=== PATIENT | female | born 1995 | race Hispanic/Latino ===

== ENCOUNTER 2017-10-22 10:38 | Inpatient (IN) | payer OTHER ==
--- NOTE | 2017-10-22 11:57 | PDOC.LDHP ---
Labor and Delivery H&P Chief complaint: other HPI: 22 yo @ 31w6d by LMP consistent with 1st trimester US presents with Influenza positive test at clinic. She states she has had n/v as well as a high fever and not feeling well for 24 hours. She states she has not had diarrhea. She does admit to body aches and overall just not feeling well. She admits to feeling her fetus move, denies vaginal bleeding, denies contractions, and admits to her normal amount of vaginal discharge. She was seen earlier in clinic and sent over to the hospital because of high pulse rate. She has no other complaints at this time. Current gestational age (weeks): 31 (31w6d) Due date: 12/18/17 Dating criteria: last menstrual period, first trimester ultrasound Grav: 1 Para: 0 OB History Details: Uncomplicated first Current complications: none Abnormal US findings: No Past Medical History: None Current medications: pre- vitamins Previous surgical history: none Allergies/Adverse Reactions: Allergies Allergy/AdvReac Type Severity Reaction Status Date / Time No Known Allergies Allergy Unverified 10/22/17 12:04 Social history: none - Physical Exam Abnormal vital signs: Tachycardia to 150s, Temperature to 102 General: NAD Heart: other (Tachycardia) Lungs: nonlabored breathing Abdomen: gravid Extremeties: no edema FHT: category 2 (Baseline 160s, Moderative variability, Positive Accels, Negative Decels) [place] contractions every: NA - OB Labs Blood type: O RH: positive Antibody Screen: negative HIV: negative RPR: negative HEPSAg: negative GBS: unknown Rubella: immune - Assessment 1. Influenza 2. Fundal Height small for dates - Plan Plan: admit to L&D -: 22 yo @ 31w6d by LMP consistent with 1st trimester US presents with 1. Influenza -Will initiate Tamiflu -Will supplement with IVF -Will give Tylenol for fevers -NST for monitoring -Track urine output -Routine labs drawn 2. Fundal Height Small for dates - Will get US limited for growth.
[2017-10-22 12:06] VITALS: BMI 29.7
[2017-10-22] MEDS ORDERED: Ondansetron ODT 4 MG TAB PO PRN (12:17)
[2017-10-22] MEDS ORDERED: Acetaminophen 650 MG/20.3 ML UDCUP PO SCH (12:30)
[2017-10-22] MEDS ORDERED: Lactated Ringer's 1,000 ML IV SCH ×3 (12:30→14:00)
[2017-10-22] MEDS ORDERED: Oseltamivir 75 MG CAP PO SCH ×3 (13:51→21:00)
[2017-10-22] MEDS ORDERED: Acetaminophen 500 MG TAB PO PRN (17:45)
[2017-10-22] MEDS ORDERED: Ondansetron HCl/PF 4 MG/2 ML Vial IVP PRN (17:45)
[2017-10-22] MEDS ORDERED: Promethazine HCl 25 MG/ML VIAL IM PRN (17:45)
[2017-10-22] MEDS: Lactated Ringer's 1,000 ML IV SCH ×2 (18:49→21:45)
[2017-10-22 18:51] LABS: #Monocytes 0.5 thou/uL (0.11-0.59); #Neutrophils 4.7 thou/uL (1.40-6.50); %Basophils 0.5 % (0.0-1.0); %Eosinophils 0.5 % (0.0-10.0); %Lymphocytes 15.6 % (28.0-48.0); %Monocytes 8.1 % (0.0-4.0); Hematocrit 30.1 % (36.0-47.0); Mean Platelet Volume 8.1 fL (7.4-10.4); Red Blood Cell (RBC) Count 3.52 mill/uL (4.00-5.20); White Blood Cell (WBC) Count 6.3 thou/uL (4.8-10.8)
[2017-10-22 19:11] LABS: ALT (SGPT) 8 U/L (8-55); AST (SGOT) 14 U/L (5-34); Alkaline Phosphatase 151 U/L (40-150); Anion Gap 12 mmol/L (10-20); BUN (Urea Nitrogen) Less than 4 mg/dL (7.0-18.7); Bilirubin, Total 0.4 mg/dL (0.2-1.2); Calc. Creatinine Clearance 166 mL/min (70-130); Calcium 8.8 mg/dL (7.8-10.44); Carbon Dioxide 22 mmol/L (22-29); Chloride 105 mmol/L (98-107); Estimated GFR-MDRD Greater than 90; Globulin 3.3 g/dL (2.4-3.5); Protein, Total 6.4 g/dL (6.0-8.3)
--- NOTE | 2017-10-22 22:41 | ULT ---
LIMITED OB ULTRASOUND: Date: 10-22-17 Provided Clinical History: Assess growth. FINDINGS: No comparison. A single live intrauterine gestation is documented in vertex presentation with heart r ate of 150 beats/minute. The placenta is posteriorly located without evidence for previa. Amniotic fl uid index is not quantified but appears qualitatively normal. Estimated gestational age based on bal celis's study is 31 weeks 3 days. Estimated weight is 1761, +/- 251 grams. A anatomic survey was not performed. biometry: BPD 31 weeks 5 days HC 31 weeks 5 days AC 31 weeks 5 days FL 30 weeks 5 days IMPRESSION: Single live intrauterine gestation, 31 weeks 3 days by ultrasound. POS: [facility]
[2017-10-23] MEDS: Lactated Ringer's 1,000 ML IV SCH (05:32)
--- NOTE | 2017-10-23 07:05 | PDOC.LDPN ---
Labor & Delivery Progress Note - Subjective Subjective: comfortable - Objective Abnormal vital signs: Tachycardia General: NAD Uterine fundus: non tender SVE: No exam performed - Assessment (1) Current Visit: Yes Status: Acute Comment: 22 yo @ 32w0d by LMP consistent with 1st Trimester US. -NST performed yesterday and reassuring -Continue routine care as outpatient (2) Influenza Code(s): J11.1 - FLU DUE TO UNIDENTIFIED INFLUENZA VIRUS W OTH RESP MANIFEST Current Visit: Yes Status: Acute Comment: -Influenza Positive -Tamiflu -IVF -Acetaminophen (3) Small for dates fetus Code(s): [id number] - Current Visit: Yes Status: Acute Comment: -Small for dates fundal height last 2 Clinic visits -Will get US for growth. Plan: continue plan of care, resuscitative measures <Canelo Magallon - Last Filed: 10/23/17 07:02> Attending Addendum - Attending Addendum I personally evaluated the patient and discussed the management with Dr. Magallon I agree with the History, Examination, Assessment and Plan documented above with any addition or exceptions noted below. 22 yo at 32.0 wks by LMP/10.2 wk sono admitted for flu with dehydration. Doing well. Improved with treatment. Still not able to tolerate PO well. Remains mildly tachycardic but otherwise stable. Continue Tamiflu. Bolus 1L. NST pending this AM. +FM per patient. EFW = 1761g (25%) at 31.6 wks. Continue inpatient management. Monitor hydration status. Continue symptomatic treatment. ABrayMD <Sarah Wasserman - Last Filed: 10/23/17 11:23>
[2017-10-23] MEDS ORDERED: Lactated Ringer's 1,000 ML IV SCH (08:45)
[2017-10-23] MEDS ORDERED: Prenatal Vitamin 1 TAB PO SCH (09:00)
[2017-10-23] MEDS ORDERED: Oseltamivir 75 MG CAP PO SCH (09:00)
[2017-10-23] MEDS ORDERED: guaiFENesin/DM ER PO SCH (09:00)
[2017-10-23 11:54] VITALS: BP 103/58; TEMP 98.2
--- NOTE | 2017-10-23 17:59 | PDOC.EVN ---
Event Note - Event Note Event Note: 10/23/17 Day shift -NST was reassuring and reactive. No contractions present -Evaluated with Dr. Wasserman -Recommend keeping all upcoming routine visits. -Patient will be followed with her PCP, Dr. Hudson. -No other concerns at this time.
--- NOTE | 2017-10-23 22:34 | DIS-2 ---
DATE OF ADMISSION: 10/22/2017 DATE OF DISCHARGE: 10/23/2017 RESIDENT: Canelo Magallon MD ADMITTING ATTENDING: Sarah Wasserman MD DISCHARGE ATTENDING: Sarah Wasserman MD CONSULTATIONS: None. PROCEDURES: The patient underwent a limited ultrasound for suspected small to dates, showed a single live intrauterine gestation that measured 31 weeks and 3 days by ultrasound which is consistent with her current due date. PRIMARY DIAGNOSES: 1. Influenza. 2. . 3. Small for dates gestation. DISCHARGE MEDICATIONS: 1. vitamin. 2. Tamiflu 75 mg b.i.d. for 6 days. DISCONTINUED MEDICATIONS: None. HISTORY OF PRESENT ILLNESS AND HOSPITAL COURSE: This is a 22-year-old female at 31 weeks and 6 days by last menstrual period consistent with a 10-week and 2-day ultrasound, presents with an influenza positive test at Clinic. She states that she has had nausea, vomiting as well as high fevers and not feeling well for about 24 hours. She states she has not had diarrhea. She does admit to body aches and overall just not feeling well. She admits to feeling her fetus move. Denies any vaginal bleeding. Denies contractions and admits to her normal amount of vaginal discharge. She was seen earlier in the clinic and sent over to the hospital because of her high pulse rate. She has no other complaints at this time. During the hospitalization, she received a total of 3 boluses of lactated Ringer 's and saw that her pulse rate was decreased from about 140 on admission to later on around 100. She was also given Tylenol for her fever that was as high as 102, decreased down to afebrile range. The patient also underwent Q-shift NSTs that were reactive and reassuring with no other concern there. She underwent the ultrasound of her small for dates that was found during clinic when her fundal height did not change much. The ultrasound was reassuring and was consistent with her current gestational age. She otherwise tolerated the hospitalization well, started to eat and drink, and started feeling better. She was placed on Tamiflu and her close family and friends that live with her at her house were also given the prophylactic dose for Tamiflu. Otherwise, the patient had no other complications during this hospitalization and will be discharged in the appropriate condition. DISPOSITION: Stable. DISCHARGE INSTRUCTIONS: Location, she will be discharged home into her own care. Diet will be as tolerated with no restrictions. Activity will be as tolerated with no restrictions. Follow up will be with Dr. Hudson, her primary care physician in the next 3-7 days. Also, we recommend that she keep all of her routine visits. LILY
== END 2017-10-23 18:40 | disposition home or self-care (01) | DRG 781 ==
LOC: L&D/OP 10:38 → 3SE 18:20
PROVIDERS: ADMIT Student in an Organized Health Care Education/Training Program; ATTEND Student in an Organized Health Care Education/Training Program
DX: O98.513 Other viral diseases complicating pregnancy, third trimester (principal); O36.5930 Maternal care for other known or suspected poor fetal growth, third trimester, not applicable or unspecified; J11.1 Influenza due to unidentified influenza virus with other respiratory manifestations; Z3A.31 31 weeks gestation of pregnancy
CPT/HCPCS: 36415; 59025; 76815; 80053; 83605; 85025; 87040; 99283; Q0162

== ENCOUNTER 2017-12-19 07:03 | Inpatient (IN) | payer OTHER ==
[2017-12-19 07:56] VITALS: BMI 30.8
[2017-12-19] MEDS ORDERED: Docusate 100 MG CAP PO PRN (08:37)
[2017-12-19] MEDS ORDERED: Ondansetron HCl/PF 4 MG/2 ML Vial IVP PRN (08:37)
[2017-12-19] MEDS ORDERED: Ibuprofen 800 MG TAB PO PRN (08:37)
[2017-12-19] MEDS ORDERED: Lidocaine 1% (PF) 30 ML VIAL SC PRN (08:37)
[2017-12-19] MEDS ORDERED: LR / Pitocin 40 units/1000 ml 1,000 ML IV PRN (08:37)
[2017-12-19] MEDS ORDERED: Acetaminophen 500 MG TAB PO PRN (08:37)
[2017-12-19] MEDS ORDERED: Penicillin G Potassium 5 MILL.UNITS in Sodium Chloride 0.9% 100 ML IVPB SCH (08:45)
--- NOTE | 2017-12-19 09:17 | PDOC.LDHP ---
Labor and Delivery H&P Chief complaint: contractions HPI: 22 presents for painful contractions every 2-5 minutes since this morning. Denies loss of fluid and vaginal discharge. w/o complications thus far. Pt is GBS + and scheduled for induction tonight. Current gestational age (weeks): 40 (1 day) Dating criteria: last menstrual period, first trimester ultrasound Grav: 1 Para: 0 Current complications: none Abnormal US findings: No Current medications: pre- vitamins Previous surgical history: none Social history: drug use (+ THC) - Physical Exam Vital signs reviewed and normal: yes General: NAD Heart: RRR Lungs: nonlabored breathing Abdomen: NTTP Extremeties: no edema FHT: category 1, variability present - Vaginal Exam cm dilated: 2 (2.5) Effacement: 75% Station: -1 - OB Labs Blood type: O RH: positive Antibody Screen: negative HIV: negative RPR: negative HEPSAg: negative 1 hour GCT: negative GBS: positive Rubella: immune - Assessment L&D Assessment: term patient in labor - Plan Plan: admit to L&D, labor augmentation if indicated, informed consent obtained, anesthesia consult for pain management -: 22 yo GBS + @ 40.1 by lmp and first tri US presenting with painful contractions -admit to L&D -pt desires epidural, consult anesthesia -Pen G for GBS prophylaxis - Cat 1 strip + accels, mod variability, no variables or late decels -cervical check 2.5, 80%, -1 @ 0830, recheck in 2-3 hours <Dario Johnson - Last Filed: 12/19/17 09:51> <Frederick Dueñas - Last Filed: 12/19/17 11:37> Allergies/Adverse Reactions: Allergies Allergy/AdvReac Type Severity Reaction Status Date / Time No Known Allergies Allergy Unverified 10/22/17 12:04 Attending Addendum - Attending Addendum I personally evaluated the patient and discussed the management with Dr. Johnson. I agree with and repeated the History, Examination, Assessment and Plan documented above with any addition or exceptions noted below. G1 @ 40w by good dates here with contractions since 5 AM. 1 cm last week and now 2-3. No LOF/VB/preE symptoms. PMH: depression PSH: denies FH: noncontributory Meds: see above A/P: G1 in latent labor Pain control per patient request May walk if desires GBS ppx if indicated Recheck in 1 hours, augmentation as indicated Anticipate . Dr. Hudson and Rony notified. <Frederick Dueñas - Last Filed: 12/19/17 11:37>
[2017-12-19] MEDS: Lactated Ringer's 1,000 ML IV SCH ×3 (09:30→16:36)
[2017-12-19] MEDS ORDERED: Bupivacaine 0.5% 20 ML, Fentanyl 400 MCG in Sodium Chloride 0.9% 72 ML EPIDURAL SCH (09:45)
[2017-12-19 10:09] LABS: Hemoglobin 11.1 g/dL (12.0-16.0); Mean Corpuscular HGB CONC 32.7 g/dL (32.0-36.0); Mean Corpuscular Volume 79.4 fl (77.0-87.0); Mean Platelet Volume 10.5 fL (7.4-10.4); Platelet Count 234 thou/uL (130-400); RBC Distribution Width 13.9 % (11.5-14.5); Red Blood Cell (RBC) Count 4.27 mill/uL (4.00-5.20); White Blood Cell (WBC) Count 14.2 thou/uL (4.8-10.8)
[2017-12-19 10:53] LABS: HBSAg Index 0.59 S/CO (0-0.99); HIV (1/2) Antibody/Antigen Non-Reactive (NonReactive); HIV 1/2 INDEX 0.17 S/CO (<1.00); Hep B Surf Ag Non-Reactive S/CO (NonReactive); Syphilis Antibody Nonreactive (Nonreactive); Syphilis Antibody Index 0.05 S/CO (<1.00 Non-Reactive)
--- NOTE | 2017-12-19 12:21 | PDOC.LDPN ---
Labor & Delivery Progress Note - Subjective Subjective: painful contractions, no concerns - Objective Vital signs reviewed and normal: yes General: resting, breathing through contractions Uterine fundus: non tender Dilation: 3.5 Effacement: 75% Station: -1 FHT: category 1, variability present [place] contractions every: 3.5 Resuscitative measures: maternal oxygen, maternal IV fluids, maternal position change Plan: continue plan of care, resuscitative measures -: Recheck @ 1030 cervical exam of 3-4/80%/-1 breathing through contractions cat 1 strip continue plan of care recheck in 2-3 hours <Dario Johnson - Last Filed: 12/19/17 12:20> Attending Addendum - Attending Addendum I personally evaluated the patient and discussed the management with Dr. Johnson. I agree with the History, Examination, Assessment and Plan documented above with any addition or exceptions noted below. <Frederick Dueñas - Last Filed: 12/20/17 09:12>
[2017-12-19] MEDS ORDERED: Naloxone HCl 0.4 mg/ml Vial IVP PRN ×2 (12:34)
[2017-12-19] MEDS ORDERED: Acetaminophen 325 MG TAB PO PRN (12:34)
[2017-12-19] MEDS ORDERED: ePHEDrine/0.9% NaCl/PF SYRINGE 50 mg/10 ml SLOW IVP PRN (12:34)
[2017-12-19] MEDS ORDERED: Lactated Ringer's 500 ML IV PRN (12:34)
[2017-12-19] MEDS ORDERED: Eucerin (Mineral Oil/Petrolatum,White) 30 gm Jar TOP PRN (12:34)
[2017-12-19] MEDS ORDERED: Fentanyl 4mcg/Marcaine 0.1% Cassette 100 ML EPIDURAL SCH (12:45)
[2017-12-19] MEDS ORDERED: Communication Order-Pharmacy FS SCH (12:45)
--- NOTE | 2017-12-19 13:00 | PDOC.LDPN ---
Labor & Delivery Progress Note - Subjective Subjective: comfortable - Objective Vital signs reviewed and normal: yes General: NAD Uterine fundus: non tender Dilation: 3 Effacement: 75% Station: -2 FHT: category 1 [place] contractions every: 3-4 - Assessment (1) Current Visit: No Status: Acute Comment: 22 yo @ 40w0d by LMP consistent with 1st Trimester US. Latent phase labor. 2nd dose Pen to be given within the hour. Begin Oxytocin augmentation. (2) Group B streptococcal carriage complicating Code(s): O99.820 - STREPTOCOCCUS B CARRIER STATE COMPLICATING Current Visit: Yes Status: Acute Comment: Pen G IAP initiated at 0930. Second dose due soon. (3) Small for dates fetus Code(s): [id number] - Current Visit: No Status: Acute Comment: -Small for dates fundal height last 2 Clinic visits No s/s's of compromise on strip. Monitor closely. Likely due to parent' s constitutional stature. Plan: labor augmentation
[2017-12-19] MEDS ORDERED: LR 500 ML/Oxytocin 10 units 500 ML IV SCH (13:45)
[2017-12-19] MEDS: LR 500 ML/Oxytocin 10 units 500 ML IV SCH (14:00)
[2017-12-19] MEDS: Penicillin G 2.5 MILL.units 2.5 MILL.UNITS in Premix Bag 1 BAG IVPB SCH ×3 (14:00→22:32)
[2017-12-19] MEDS ORDERED: Lidocaine 1% (PF) 30 ML VIAL ONE (16:16)
[2017-12-19] MEDS ORDERED: LR / Pitocin 40 units/1000 ml 1,000 ML ONE (16:17)
[2017-12-19] MEDS ORDERED: Adacel (T-DAP) 0.5 ML VIAL IM ONE (17:22)
[2017-12-19] MEDS ORDERED: Milk Of Magnesia 30 ML UDCUP PO PRN (17:22)
[2017-12-19] MEDS ORDERED: Lanolin Ointment 7 GM TUBE TOP PRN (17:22)
[2017-12-19] MEDS ORDERED: Bisacodyl 10 MG SUPP PR PRN (17:22)
[2017-12-19] MEDS ORDERED: LR / Pitocin 40 units/1000 ml 1,000 ML IV SCH (17:30)
--- NOTE | 2017-12-19 20:15 | PDOC.OPDEL ---
OB Operative/Delivery Note Delivery Dr/Surgeon: Elizabeth/Rony/ Pre-Delivery Diagnosis: active labor Procedure/Post Delivery Dx: spontaneous vaginal delivery Weeks gestation: 40 (40.1) Anesthesia: epidural - Additional Findings/Plan Placenta delivered: spontaneous Repaired Obstetrical Laceration: other (b/l hemostatic vaginal sidewall lacerations) Estimated blood loss: 200mL Compilations/Other Findings: @ 1701 to vigorous TAGA M, in OA position w/ APGARS 9&9 over intact perineum with epidural anesthesia. Nuchal cord X1. Spontaneous delivery of placenta via [place] w/ 3 vessel cord visualized. Small vaginal sidewall lacerations, hemostatic. EBL was 200mL. Post delivery plan: routine recovery <Dario Johnson - Last Filed: 12/19/17 20:14> Attending Addendum - Attending Addendum I personally evaluated the patient and was present for and participated in the entire procedure as described by Dr. Johnson I agree with the History, Examination, Assessment and Plan documented above with any addition or exceptions noted below. 22 y.o. G1 now P1001 delivered viable male via over intact perineum without complication. Mouth and nares suctioned at delivery. No shoulder dystocia. Placenta delivered intact with 3 vessel chord. <Kian Hudson - Last Filed: 12/21/17 14:46>
[2017-12-19] MEDS: Ibuprofen 800 MG TAB PO SCH (22:31)
[2017-12-19] MEDS: Docusate Calcium (SURFAK) 240 MG CAP PO SCH (22:31)
[2017-12-20 06:12] LABS: Hemoglobin 9.1 g/dL (12.0-16.0); Mean Corpuscular HGB CONC 32.2 g/dL (32.0-36.0); Mean Corpuscular Hemoglobin 25.7 pg (25.0-35.0); Mean Corpuscular Volume 79.9 fl (77.0-87.0); Mean Platelet Volume 9.7 fL (7.4-10.4); Platelet Count 195 thou/uL (130-400); RBC Distribution Width 13.7 % (11.5-14.5); Red Blood Cell (RBC) Count 3.52 mill/uL (4.00-5.20); White Blood Cell (WBC) Count 14.9 thou/uL (4.8-10.8)
[2017-12-20] MEDS: Penicillin G 2.5 MILL.units 2.5 MILL.UNITS in Premix Bag 1 BAG IVPB SCH (06:46)
[2017-12-20] MEDS: Ibuprofen 800 MG TAB PO SCH ×3 (06:47→21:23)
--- NOTE | 2017-12-20 08:14 | PDOC.PP ---
Addendum entered and electronically signed by Dario Johnson DO 12/20/17 08: 37: GBS +: Continue to monitor vitals, pt was adequately ppx. Primip and GBS pos, will stay pp 48 hours Original Note: Post Progress Note Post Day #: 1 Subjective: 22 yo G1 now P1 pp day 1. with EBL 200. Hemostatic vaginal sidewall lacerations. Yang out. Denies headache, cp, sob, nvdc, palpitations, and abd pain. PO intake tolerated: yes Flatus: no Ambulation: yes Vital Signs (12 hours) Temp Pulse Resp BP 12/20/17 04:10 98.3 F 66 16 109/58 L 12/19/17 23:00 98.2 F 71 16 132/77 12/19/17 22:10 98.2 F 103 H 20 123/78 12/19/17 21:20 98.7 F 95 20 12/19/17 21:19 98.7 F 95 20 124/72 Weight Weight 71.668 kg - Physical Examination General: NAD Cardiovascular: no m/r/g, RRR Respiratory: clear to auscultation bilaterally, non-labored breathing Abdominal: + bowel sounds, lochia, no distention, appropriately TTP Neurological: no gross focal deficits Psychiatric: normal affect Result Diagrams: 12/20/17 05:37 Additional Labs: Post Labs Blood Type O POSITIVE 12/19/17 09:30 Hep Bs Antigen Non-Reactive S/CO (NonReactive) 12/19/17 09:30 (1) Status: Acute - Assessment/Plan pp day 1 pt denies pain scant lochia h&h stable continue p[p care pnv and bowel regimen f/u on bm/flatus <Dario Johnson - Last Filed: 12/20/17 08:12> Vital Signs (12 hours) Temp Pulse Resp BP 12/21/17 08:35 97.9 F 71 20 111/60 12/21/17 08:00 98.3 F 71 18 Weight Weight 71.668 kg Result Diagrams: 12/20/17 05:37 Additional Labs: Post Labs Blood Type O POSITIVE 12/19/17 09:30 Hep Bs Antigen Non-Reactive S/CO (NonReactive) 12/19/17 09:30 (1) Status: Resolved (2) Group B streptococcal carriage complicating Code(s): O99.820 - STREPTOCOCCUS B CARRIER STATE COMPLICATING Status : Acute Comment: Pen G IAP initiated at 0930. Second dose due soon. (3) Small for dates fetus Code(s): [id number] - Status: Acute Comment: -Small for dates fundal height last 2 Clinic visits No s/s's of compromise on strip. Monitor closely. Likely due to parent' s constitutional stature. <Kian Hudson - Last Filed: 12/21/17 14:49> Attending Addendum - Attending Addendum I personally evaluated the patient and discussed the management with Dr. Johnson I agree with the History, Examination, Assessment and Plan documented above with any addition or exceptions noted below. No pain. Afeb. Fundus firm. Lochia nl. Routine PP care. 48 hour obs for GBS and new mom. well. <Kian Hudson - Last Filed: 12/21/17 14:49>
[2017-12-20] MEDS: Prenatal Vitamin 1 TAB PO SCH (09:22)
[2017-12-20] MEDS: Docusate Calcium (SURFAK) 240 MG CAP PO SCH ×2 (09:22→21:23)
[2017-12-20] MEDS: Ferrous Sulfate 325 MG TAB PO SCH ×2 (09:25→18:12)
[2017-12-21] MEDS: Ibuprofen 800 MG TAB PO SCH ×2 (06:27→14:46)
[2017-12-21 08:35] VITALS: BP 111/60; TEMP 97.9
[2017-12-21] MEDS: Docusate Calcium (SURFAK) 240 MG CAP PO SCH (09:11)
[2017-12-21] MEDS: Ferrous Sulfate 325 MG TAB PO SCH (09:11)
[2017-12-21] MEDS: Prenatal Vitamin 1 TAB PO SCH (09:11)
[2017-12-21] MEDS: Penicillin G 2.5 MILL.units 2.5 MILL.UNITS in Premix Bag 1 BAG IVPB SCH ×2 (09:24→09:25)
[2017-12-21] MEDS: Lactated Ringer's 1,000 ML IV SCH (09:24)
[2017-12-21] MEDS: LR 500 ML/Oxytocin 10 units 500 ML IV SCH (09:25)
--- NOTE | 2017-12-21 10:40 | PDOC.PP ---
Post Progress Note Post Day #: 2 Subjective: 22 yo G1 now P1 GBS +. PP day 2. Tolerating po, no complaints at this time. PO intake tolerated: yes Flatus: yes Ambulation: yes Vital Signs (12 hours) Temp Pulse Resp BP 12/21/17 08:35 97.9 F 71 20 111/60 12/21/17 08:00 98.3 F 71 18 Weight Weight 71.668 kg - Physical Examination General: NAD Cardiovascular: no m/r/g, RRR Respiratory: clear to auscultation bilaterally, non-labored breathing Abdominal: + bowel sounds, lochia, no distention, appropriately TTP Extremities: negative homans (B) Neurological: no gross focal deficits Psychiatric: normal affect Result Diagrams: 12/20/17 05:37 Additional Labs: Post Labs Blood Type O POSITIVE 12/19/17 09:30 Hep Bs Antigen Non-Reactive S/CO (NonReactive) 12/19/17 09:30 (1) Status: Resolved - Assessment/Plan Delivered. PP day 2 Plan for dc today with f/u in clinic in 2-3 weeks <Dario Johnson - Last Filed: 12/21/17 10:38> Vital Signs (12 hours) Temp Pulse Resp BP 12/21/17 08:35 97.9 F 71 20 111/60 12/21/17 08:00 98.3 F 71 18 Weight Weight 71.668 kg Result Diagrams: 12/20/17 05:37 Additional Labs: Post Labs Blood Type O POSITIVE 12/19/17 09:30 Hep Bs Antigen Non-Reactive S/CO (NonReactive) 12/19/17 09:30 (1) Group B streptococcal carriage complicating Code(s): O99.820 - STREPTOCOCCUS B CARRIER STATE COMPLICATING Status : Acute Comment: Pen G IAP initiated at 0930. Second dose due soon. (2) Small for dates fetus Code(s): [id number] - Status: Acute Comment: -Small for dates fundal height last 2 Clinic visits No s/s's of compromise on strip. Monitor closely. Likely due to parent' s constitutional stature. <Kian Hudson - Last Filed: 12/21/17 14:51> Attending Addendum - Attending Addendum I personally evaluated the patient and discussed the management with Dr. Johnson I agree with the History, Examination, Assessment and Plan documented above with any addition or exceptions noted below. No pain. Afeb. Fundus firm. Lochia normal. well. Stable for d /c with f/u in 6 weeks this p.m. <Kian Hudson - Last Filed: 12/21/17 14:51>
== END 2017-12-21 16:20 | disposition home or self-care (01) | DRG 775 ==
LOC: L&D/OP 07:03 → L&D 08:59 → 3SW 21:25
PROVIDERS: ADMIT Family Medicine; ATTEND Family Medicine
PROC: 10E0XZZ Delivery of Products of Conception, External Approach (ICD-10-PCS; principal; 2017-12-19)
DX: O99.824 Streptococcus B carrier state complicating childbirth (principal); Z37.0 Single live birth; Z3A.40 40 weeks gestation of pregnancy
CPT/HCPCS: 36415; 51701; 51702; 85027; 86780; 86850; 86900; 86901; 87340; 87389; 99285; J0595; J2001; J2540; J3010; J3490; J7050; J7120

== ENCOUNTER 2018-02-08 10:13 | Outpatient (CLI) | payer OTHER | END 2018-02-08 10:14 | disposition home or self-care (01) | LOC: BICULT 10:13 | PROVIDERS: ATTEND Family Medicine | DX: R10.11 Right upper quadrant pain (principal) | CPT/HCPCS: 76705 ==

== ENCOUNTER 2018-08-21 18:55 | Emergency (ER) | payer OTHER ==
[~2018-08-21 18:55] MED LIST: ISOVUE-370 76%-LOCM 1 ML ONE
[2018-08-21] MEDS ORDERED: Acetaminophen 500 MG TAB ONE (19:20)
[2018-08-21 19:28] LABS: Bilirubin Negative (Negative); Blood, Urine Small (Negative); Clarity CLEAR (Clear); Glucose, Urine (Dipstick) Negative (Negative); Leukocyte Trace (Negative); Nitrite Negative (Negative); Protein, Urine (Dipstick) Trace mg/dL (Neg-Trace); Urobilinogen 0.2 mg/dL (0.2-1.0)
[2018-08-21 19:32] LABS: Bacteria/HPF Rare-Few HPF (None Seen); Hyaline Casts/LPF 4-6 HYALINE CAST LPF (0-3 Hyaline); Pathc Cast-AUWi Flag 0.72 (0-2.49); WBC/HPF 0-3 HPF (0-3)
[2018-08-21] MEDS ORDERED: metroNIDAZOLE 500 MG/100 ML BAG ONE (19:37)
[2018-08-21 19:40] LABS: #Lymphocytes 0.8 thou/uL (1.20-3.40); #Monocytes 0.2 thou/uL (0.11-0.59); #Neutrophils 12.5 thou/uL (1.40-6.50); %Basophils 0.1 % (0.0-1.0); %Eosinophils 0.2 % (0.0-10.0); %Monocytes 1.6 % (0.0-10.0); Hemoglobin 12.8 g/dL (12.0-16.0); Mean Corpuscular HGB CONC 32.4 g/dL (32.0-36.0); Mean Corpuscular Volume 77.2 fL (78.0-98.0); Mean Platelet Volume 8.3 fL (7.4-10.4); Platelet Count 296 thou/uL (130-400); RBC Distribution Width 13.6 % (11.5-14.5); Red Blood Cell (RBC) Count 5.12 mill/uL (4.20-5.40); White Blood Cell (WBC) Count 13.6 thou/uL (4.8-10.8)
[2018-08-21 19:59] LABS: BHCG - Serum Negative (NEGATIVE); Pregs Control Background? CLEAR/WHITE (CLR/WHITE); Pregs Control Bar Appear? YES (CONTROL BAR)
[2018-08-21 20:01] LABS: ALT (SGPT) 10 U/L (8-55); AST (SGOT) 16 U/L (5-34); Albumin 4.6 g/dL (3.5-5.0); Alkaline Phosphatase 73 U/L (40-150); Anion Gap 9 mmol/L (10-20); BUN (Urea Nitrogen) 12 mg/dL (7.0-18.7); Bilirubin, Total 0.8 mg/dL (0.2-1.2); Calc. Creatinine Clearance 0 mL/min (70-130); Calcium 9.7 mg/dL (7.8-10.44); Carbon Dioxide 25 mmol/L (22-29); Chloride 105 mmol/L (98-107); Estimated GFR-MDRD Greater than 90; Globulin 3.8 g/dL (2.4-3.5); Glucose 98 mg/dL (70-105); Potassium 3.5 mmol/L (3.5-5.1); Protein, Total 8.4 g/dL (6.0-8.3); Sodium 135 mmol/L (136-145)
--- NOTE | 2018-08-21 20:48 | CT ---
CT ABDOMEN AND PELVIS WITH IV CONTRAST: 08/21/18 HISTORY: Flank pain. Fever. FINDINGS: Lung bases are clear. The liver, spleen, kidneys, adrenal glands and pancreas have a normal CT appear ance. No enlarged lymph nodes or free fluid are apparent. No evidence of urinary tract obstruction. U rinary bladder is decompressed. Lack or oral contrast limits evaluation of the bowel. No evidence of bowel obstruction or inflammatio n. Physiologic amount of free fluid. IMPRESSION: No significant abnormalities are demonstrated. POS: [facility]
== END 2018-08-21 21:33 | disposition home or self-care (01) ==
LOC: ERS 18:55
DX: R11.2 Nausea with vomiting, unspecified (principal); R19.7 Diarrhea, unspecified; F41.9 Anxiety disorder, unspecified
CPT/HCPCS: 74177; 80053; 81003; 81015; 83605; 84703; 85025; 96365; 96367; J0744

== ENCOUNTER 2019-09-08 13:31 | Emergency (ER) | payer OTHER, SELFPAY ==
[2019-09-08] MEDS ORDERED: Acetaminophen 500 MG TAB ONE (14:41)
== END 2019-09-08 15:50 | disposition home or self-care (01) ==
LOC: ERS 13:31
DX: J06.9 Acute upper respiratory infection, unspecified (principal); F17.210 Nicotine dependence, cigarettes, uncomplicated
CPT/HCPCS: 87804; 99283

== ENCOUNTER 2019-09-10 10:06 | Emergency (ER) | payer SELFPAY ==
--- NOTE | 2019-09-10 10:56 | RAD ---
EXAM: Chest PA and lateral: HISTORY: Cough COMPARISON: None FINDINGS: Heart size:Within normal limits. Lungs:Clear of acute process. No confluent pneumonia, overt edema, pleural effusion, or other acute process. IMPRESSION: No significant acute intrathoracic disease.
== END 2019-09-10 12:21 | disposition home or self-care (01) ==
LOC: ERS 10:06
DX: J06.9 Acute upper respiratory infection, unspecified (principal); F17.210 Nicotine dependence, cigarettes, uncomplicated
CPT/HCPCS: 71046

== ENCOUNTER 2023-03-12 17:51 | Emergency (ER) | payer SELFPAY ==
[2023-03-12 18:23] LABS: #Eosinphils 0.1 thou/uL (0.0-0.7); #Monocytes 0.5 thou/uL (0.11-0.59); #Neutrophils 8.3 thou/uL (1.40-6.50); %Basophils 0.2 % (0.0-1.0); %Eosinophils 0.6 % (0.0-10.0); %Lymphocytes 15.5 % (21.0-51.0); %Monocytes 4.9 % (0.0-10.0); %Neutrophils 78.5 % (42.0-75.0); Hemoglobin 10.2 g/dL (12.0-16.0); Mean Corpuscular HGB CONC 33.1 g/dL (32.0-36.0); Mean Corpuscular Hemoglobin 28.3 pg (27.0-31.0); Mean Corpuscular Volume 85.6 fl (78.0-98.0); Mean Platelet Volume 10.4 fL (7.4-10.4); Platelet Count 256 10x3/uL (130-400); RBC Distribution Width 12.8 % (11.5-14.5); White Blood Cell (WBC) Count 10.6 10x3/uL (4.8-10.8)
[2023-03-12 19:29] LABS: Albumin 3.2 g/dL (3.5-5.0); Calcium 8.7 mg/dL (7.8-10.44); Chloride 109 mmol/L (98-107); Globulin 2.9 g/dL (2.4-3.5); Glucose 117 mg/dL (70-105); Potassium 3.7 mmol/L (3.5-5.1); Protein, Total 6.1 g/dL (6.0-8.3); Sodium 137 mmol/L (136-145)
[2023-03-12 19:30] LABS: Anion Gap 11 mmol/L (10-20); Bilirubin, Total 0.3 mg/dL (0.2-1.2); Carbon Dioxide 21 mmol/L (22-29)
[2023-03-12 19:32] LABS: Alkaline Phosphatase 56 U/L (40-110); Calc. Creatinine Clearance 0 mL/min (70-130); Estimated GFR 127
[2023-03-12 19:33] LABS: BUN (Urea Nitrogen) 4 mg/dL (7.0-18.7)
[2023-03-12 19:34] LABS: AST (SGOT) 16 U/L (5-34)
[2023-03-12 19:35] LABS: ALT (SGPT) 11 U/L (8-55)
[2023-03-12 21:14] LABS: Bilirubin Negative (Negative); Blood, Urine Negative (Negative); Clarity Clear (Clear); Glucose, Urine (Dipstick) 500 mg/dL (Negative); Ketone, Urine Negative (Negative); Leukocyte Negative Leu/uL (Negative); Nitrite Negative (Negative); Protein, Urine (Dipstick) 10 mg/dL (Neg-Trace); Specific Gravity, Urine 1.019 (1.002-1.036); Urobilinogen Normal mg/dL (Less than 2)
== END 2023-03-12 23:29 | disposition left against medical advice (07) ==
LOC: ERS 17:51
DX: Z53.21 Procedure and treatment not carried out due to patient leaving prior to being seen by health care provider (principal)
CPT/HCPCS: 36416; 80053; 81003; 85025; 87086